=== PATIENT | female | born 1995 | race Caucasian/White ===

== ENCOUNTER 2018-09-11 18:42 | Emergency (ER) | payer SELFPAY ==
[2018-09-11 18:46] VITALS: BMI 16.6
[2018-09-11 18:48] VITALS: O2SAT 100
[2018-09-11] MEDS ORDERED: Sodium Chloride 0.9% 1,000 ML IV ONE (19:17)
--- NOTE | 2018-09-11 19:17 | C.PDOC ---
History Of Present Illness Patient presents to the ER with a complaint of burning abdominal pain for the past 3 days. Patient states the pain worsens with eating. LMP was 08/25/18. Denies fever, chills, nausea, or vomiting. Time Seen by Provider: 09/11/18 19:17 Chief Complaint (Nursing): Abdominal Pain History Per: Patient History/Exam Limitations: no limitations Onset/Duration Of Symptoms: Days (3) Current Symptoms Are (Timing): Still Present Severity: Moderate Pain Scale Rating Of: 4 Location Of Pain/Discomfort: Epigastric Radiation Of Pain To:: None Quality Of Discomfort: Burning Associated Symptoms: denies: Fever, Chills, Nausea, Vomiting Exacerbating Factors: Food Alleviating Factors: None Recent travel outside of the [place]: No Abnormal Vaginal Bleeding: No Past Medical History Reviewed: Historical Data, Nursing Documentation, Vital Signs Vital Signs: Last Vital Signs Temp 98.7 F 09/11/18 18:45 Pulse 87 09/11/18 18:45 Resp 18 09/11/18 18:45 BP 124/81 09/11/18 18:45 Pulse Ox 100 09/11/18 18:45 Surgical History: Tonsillectomy Family History: States: No Known Family Hx - Social History Hx Alcohol Use: No Hx Substance Use: No - Immunization History Hx Tetanus Toxoid Vaccination: Yes Hx Influenza Vaccination: Yes Hx Pneumococcal Vaccination: Yes Review Of Systems Constitutional: Negative for: Fever, Chills Cardiovascular: Negative for: Chest Pain, Palpitations Respiratory: Negative for: Cough, Shortness of Breath Gastrointestinal: Positive for: Abdominal Pain. Negative for: Nausea, Vomiting Neurological: Negative for: Weakness, Numbness Physical Exam - Physical Exam Appears: Non-toxic Skin: Warm, Dry Head: Normacephalic Oral Mucosa: Moist Chest: Symmetrical, No Tenderness Cardiovascular: Rhythm Regular Respiratory: No Rales, No Rhonchi, No Wheezing Gastrointestinal/Abdominal: Soft, Tenderness (Mid epigastric), No Guarding, No Rebound Back: No CVA Tenderness Neurological/Psych: Oriented x3 ED Course And Treatment - Laboratory Results Result Diagrams: 09/11/18 19:26 09/11/18 19:26 O2 Sat by Pulse Oximetry: 100 (room air) Pulse Ox Interpretation: Normal Progress Note: Blood work and urinalysis ordered. IV fluids administered. Reevaluation Time: 20:55 Reassessment Condition: Improved Disposition Counseled Patient/Family Regarding: Studies Performed, Diagnosis, Need For Followup, Rx Given - Disposition Referrals: Pablo Muller MD [Staff Provider] - Disposition: HOME/ ROUTINE Disposition Time: 19:17 Condition: FAIR Additional Instructions: Please return if symptoms recur Prescriptions: Metronidazole [Flagyl] 500 mg PO TID #21 tablet Pantoprazole Sodium [Protonix] 40 mg PO DAILY #15 ect Instructions: Acute Abdomen (Belly Pain), Adult (DC), Uterine Fibroids (DC) Forms: [employer] ([place]) - Clinical Impression Clinical Impression: Abdominal pain, Enteritis, Uterine fibroid - Scribe Statement The provider has reviewed the documentation as recorded by the Scribcarolin Kumari All medical record entries made by the Ivánibcarolin were at my direction and personally dictated by me. I have reviewed the chart and agree that the record accurately reflects my personal performance of the history, physical exam, m edical decision making, and the department course for this patient. I have also personally directed, reviewed, and agree with the discharge instructions and disposition.
[2018-09-11 19:29] LABS: BASO % 0.5 % (0.0-2.0); EOS # 0.1 K/uL (0.0-0.7); EOS % 1.2 % (0.0-4.0); HEMOGLOBIN 11.3 g/dL (11.0-16.0); LYMPH # 2.1 K/uL (1.0-4.3); LYMPH % 33.3 % (20.0-40.0); MEAN CELL VOLUME 75.5 fL (81.0-99.0); MEAN CORPUSCULAR HEMOGLOBIN 24.1 pg (27.0-31.0); MEAN CORPUSCULAR HGB CONC 31.9 g/dL (33.0-37.0); MEAN PLATELET VOLUME 11.5 fL (7.2-11.7); MONO # 0.4 K/uL (0.0-0.8); MONO % 6.8 % (0.0-10.0); NEUT # 3.6 K/uL (1.8-7.0); NEUT % 58.2 % (50.0-75.0); NRBC % 0.1 % (0.0-2.0); RBC 4.71 Mil/uL (3.80-5.20); RED CELL DISTRIBUTION WIDTH 16.4 % (11.5-14.5); WHITE BLOOD COUNT 6.2 K/uL (4.8-10.8)
[2018-09-11 19:40] LABS: ALB/GLOB RATIO 1.2 (1.0-2.1); ALBUMIN 4.9 g/dL (3.5-5.0); ALT/SGPT 28 U/L (9-52); AST/SGOT 32 U/L (14-36); BLOOD UREA NITROGEN 6 mg/dL (7-17); CALCIUM 9.4 mg/dl (8.6-10.4); GFR NON-AFRICAN AMERICAN > 60; INR 1.2; LIPASE 139 U/L (23-300); PROTHROMBIN TIME 13.2 SECONDS (9.7-12.2)
[2018-09-11 19:46] LABS: SQUAMOUS EPITHIAL 1 /hpf (0-5); URINE BILIRUBIN NEGATIVE (NEGATIVE); URINE BLOOD NEGATIVE (NEGATIVE); URINE CLARITY Clear (Clear); URINE COLOR Straw (YELLOW); URINE GLUCOSE (UA) NORMAL (Normal); URINE LEUKOCYTE ESTERASE NEG Leu/uL (Negative); URINE PROTEIN NEGATIVE (NEGATIVE); URINE UROBILINOGEN NORMAL mg/dL (0.2-1.0)
[2018-09-11 19:47] LABS: HCG,QUALITATIVE URINE NEGATIVE (NEGATIVE)
[2018-09-11] MEDS ORDERED: Iodixanol 320 MG/ML 100 ML BOTTLE IV ONE (20:00)
[2018-09-11 20:52] VITALS: BP 106/69; PULSE 83; RESP 16; TEMP 97.7
--- NOTE | 2018-09-12 07:18 | CT ---
CT abdomen and pelvis HISTORY: Abdominal pain. COMPARISON: None available. TECHNIQUE: Multiple contiguous axial images were performed through the abdomen and pelvis with the use of intravenous contrast. Subsequently, sagittal and coronal reformatted images were obtained. This CT exam was performed using one or more of the following dose reduction techniques: Automated exposure control, adjustment of the mA and/or kV according to patient size, and/or use of iterative reconstruction technique. Findings: Lung bases are clear. No pleural or pericardial effusion. Liver is preserved. Contracted gallbladder. Spleen is preserved. Adrenal glands are preserved. Pancreas is preserved. Few mildly thick-walled fluid-filled loops of ileum which may represent a mild enteritis. Clinical correlation. Right kidney: No calculi or hydronephrosis. Left Kidney: No calculi or hydronephrosis. Urinary bladder is preserved. Heterogeneous and prominent uterus. At the level of the right hemiuterus extending to the level of the right adnexa, there is a large 4.6 x 4.2 centimeter lesion demonstrating a Hounsfield unit attenuation of 71, indeterminate. This may represent an exophytic uterine fibroid lesion however an underlying adnexal lesion cannot entirely be excluded. Correlation with pelvic ultrasound is recommended for further evaluation. Trace free fluid at the level of the right adnexa and pelvic cul-de-sac. Evaluation of the lower abdominal bowel demonstrates fecal retention in the colon. Appendix not well identified, possibly seen on series 3, image 122. No evidence of gross pericecal fat stranding or fluid to suggest an acute appendicitis. Clinical correlation. Few shotty para-aortic and inguinal lymph nodes. Few shotty mesenteric lymph nodes. Osseous structures grossly preserved. Impression: 1. At the level of the right hemiuterus extending to the level of the right adnexa, there is a large 4.6 x 4.2 centimeter lesion demonstrating a Hounsfield unit attenuation of 71, indeterminate. This may represent an exophytic uterine fibroid lesion; however, an underlying adnexal lesion cannot entirely be excluded. Correlation with pelvic ultrasound is recommended for further evaluation. 2. Appendix not well identified, possibly seen on series 3, image 122. No evidence of gross pericecal fat stranding or fluid to suggest an acute appendicitis. Clinical correlation. 3. Few mildly thick-walled fluid-filled loops of ileum which may represent a mild enteritis. Clinical correlation. A preliminary report was generated at 8:47 p.m. on 09/11/[address] Andrey Villeda from [facility].
== END 2018-09-11 21:14 | disposition home or self-care (01) ==
LOC: C.ER 18:42
DX: K52.9 Noninfective gastroenteritis and colitis, unspecified (principal); D25.9 Leiomyoma of uterus, unspecified; R10.13 Epigastric pain
CPT/HCPCS: 74177; 80053; 81001; 83690; 84703; 85025; 85610; 85730; 96361; 96374; 99285; J1885; J7030; Q9967